=== PATIENT | female | born 1985 | race Caucasian/White ===

== ENCOUNTER 2021-04-24 08:41 | Emergency (ER) | payer MEDICAID ==
[~2021-04-24] VITALS: Ht 170.2 cm; Wt 63.5 kg
[2021-04-24 08:41] VITALS: BP 146/99
[~2021-04-24 08:41] MED LIST: LEVO25CA2
== END 2021-04-24 10:33 | disposition home or self-care (01) ==
LOC: ER 08:41
DX: Z00.00 Encounter for general adult medical examination without abnormal findings (principal); Z79.899 Other long term (current) drug therapy; Z88.5 Allergy status to narcotic agent